=== PATIENT | female | born 1970 | race Caucasian/White ===

== ENCOUNTER → 2023-05-27 10:03 | Outpatient (REF) | payer BC, SELFPAY | LOC: RAD 10:03 | PROVIDERS: ATTENDING PHYSICIAN Surgery Vascular Surgery; FAMILY PHYSICIAN Family Medicine | DX: I73.9 Peripheral vascular disease, unspecified (principal) | CPT/HCPCS: 93922; 93925 ==

== ENCOUNTER → 2023-11-01 12:48 | Outpatient (REF) | payer BC, SELFPAY | LOC: MRI 3T 12:48 | PROVIDERS: ATTENDING PHYSICIAN Physician Assistant; FAMILY PHYSICIAN Family Medicine | DX: S43.431D Superior glenoid labrum lesion of right shoulder, subsequent encounter (principal); S46.011A Strain of muscle(s) and tendon(s) of the rotator cuff of right shoulder, initial encounter | CPT/HCPCS: 73221 ==

== ENCOUNTER → 2024-06-09 12:54 | Outpatient (REF) | payer BC, SELFPAY | LOC: RAD 12:54 | PROVIDERS: ATTENDING PHYSICIAN Surgery Vascular Surgery; FAMILY PHYSICIAN Student in an Organized Health Care Education/Training Program | DX: I73.9 Peripheral vascular disease, unspecified (principal) | CPT/HCPCS: 93922; 93925 ==